=== PATIENT | female | born 1980 | race Caucasian/White ===

== ENCOUNTER 2021-08-25 18:57 | Emergency (ER) | payer OTHER ==
[~2021-08-25] VITALS: Ht 160 cm; Wt 92.1 kg
[2021-08-25 19:38] LABS: HEMOGLOBIN 13.5 gm/dl (12.3-15.3); RED BLOOD COUNT 4.7 M/UL (4.00-5.10); WHITE BLOOD COUNT 10.2 K/UL (4.5-11.0)
[2021-08-25 19:58] LABS: BUN/CREATININE RATIO 13 (0-10)
[2021-08-25] MEDS ORDERED: OMNICEF 300 MG300 MG PO (21:06)
[2021-08-25] MEDS ORDERED: DILANTIN100 MG PO (21:06)
[2021-08-25] MEDS ORDERED: MACROBID 100 M100 MG PO (21:27)
== END 2021-08-25 23:00 | disposition home or self-care (01) ==
LOC: ER1 18:57
PROVIDERS: Emergency Medicine
DX: G40.909 Epilepsy, unspecified, not intractable, without status epilepticus (principal)
CPT/HCPCS: 70450; 71045; 80053; 81001; 84703; 85025; 96374; 99284; Q2009

== ENCOUNTER → 2021-10-30 | Outpatient (CLI) | payer OTHER ==
[~2021-10-30] MED LIST: DILANTIN100 MG PO; MACROBID 100 M100 MG PO; OMNICEF 300 MG300 MG PO
== END ==
LOC: RAD 13:53
DX: M54.2 Cervicalgia (principal); M54.50 Low back pain, unspecified; M47.812 Spondylosis without myelopathy or radiculopathy, cervical region
CPT/HCPCS: 72040; 72100